=== PATIENT | female | born 1930 | race Caucasian/White ===

== ENCOUNTER 2017-03-02 17:34 | Inpatient (IN) ==
[2017-03-02 18:41] LABS: MANUAL DIFF NEEDED? NO
[2017-03-02 18:47] LABS: BASO% 0.3 % (0.0-0.8); HEMATOCRIT 31.9 % (37.0-47.0); HEMOGLOBIN 9.9 g/dL (12.0-16.0); IMM GRAN# 0.04 X1000 (0.0-0.04); IMM GRAN% 0.3 % (0.0-0.5); LYMPH# 2.37 X1000 (1.2-3.4); LYMPH% 19.9 % (20.5-51.1); MCV 83.7 FL (81-99); MONO# 0.99 X1000 (0.11-0.59); MONO% 8.3 % (1.7-9.3); MPV 8.4 FL (7.4-10.4); NEUT% 71.2 % (42.2-75.2); PLT 420 X1000 (130-400); RBC 3.81 XMIL (4.2-5.4)
--- NOTE | 2017-03-02 18:50 | EKG Report ---
Test Performed on : 03/02/2017 6:23:22 PM Test Reason : AMS Blood Pressure : / mmHG Vent. Rate : 097 BPM Atrial Rate : 097 BPM P-R Int : 150 ms QRS Dur : 078 ms QT Int : 340 ms P-R-T Axes : 083 -69 077 degrees QTc Int : 431 ms Sinus rhythm. with premature atrial complexes. Left axis deviation Abnormal ECG No previous ECGs available Unconfirmed Result
[2017-03-02 19:34] LABS: ALBUMIN 2.7 g/dL (3.5-5.0); CALCIUM 12.7 mg/dL (8.8-10.2); INR 0.97 (0.86-1.15); POTASSIUM 3.8 mmol/L (3.5-5.1); PROTIME 13.2 Seconds (12.1-15.5); TOTAL BILIRUBIN 0.4 mg/dL (0.20-1.00)
[2017-03-02 19:35] LABS: PTT PL 32.4 Seconds (22.6-43.9)
--- NOTE | 2017-03-02 19:57 | Diag Imaging Result Doc PS360 ---
CHEST-1 VIEW - 03/02/2017 INDICATION: AMS TECHNIQUE: COMPARISON: None FINDINGS: Aside from a calcified granuloma in the right midlung, the lungs are fairly clear. There is some mild biapical pleural scarring. Heart size is normal. Bony structures are diffusely abnormal with mixed lysis compatible with extensive metastatic disease or myeloma. IMPRESSION: Extensive skeletal abnormalities compatible with metastatic disease or multiple myeloma. Electronically signed by Robert Lofton 03/02/2017 7:55 PM
[2017-03-02 20:15] LABS: BILIRUBIN URINE NEGATIVE (NEGATIVE); BLOOD URINE TRACE (NEGATIVE); CLARITY SL. CLOUDY (CLEAR); COLOR YELLOW; GLUCOSE URINE NEGATIVE (NEGATIVE); LEUKOCYTES URINE NEGATIVE (NEGATIVE); NITRITE URINE NEGATIVE (NEGATIVE); PROTEIN URINE TRACE mg/dL (NEGATIVE); SP GRAVITY URINE 1.025; UR AMPHETAMINES QUAL NONE DETECTED (NONE DETECT); UR BARBITUATES QUAL NONE DETECTED (NONE DETECT); UR BENZODIAZEPIN QUAL NONE DETECTED (NONE DETECT); UR CANNABINOIDS QUAL NONE DETECTED (NONE DETECT); UR COCAINE QUAL NONE DETECTED (NONE DETECT); UR MDMA QUAL NONE DETECTED (NONE DETECT); UR METHADONE QUAL NONE DETECTED (NONE DETECT); UR METHAMPHETAMINE QUAL NONE DETECTED (NONE DETECT); UR OPIATES QUAL NONE DETECTED (NONE DETECT); UR OXYCODONE QUAL NONE DETECTED (NONE DETECT); UR PCP QUAL NONE DETECTED (NONE DETECT); UR TCA QUAL NONE DETECTED (NONE DETECT); UROBILINOGEN URINE NORMAL
[2017-03-02 20:22] LABS: URINE SOURCE CATH
[2017-03-02 20:23] LABS: URINE CULTURE PL NEEDED? YES; URINE EPITHELIAL CELLS <10 /HPF (<10); URINE RBC <10 /HPF (<10); URINE WBC <10 /HPF (<10)
[2017-03-02] MEDS ORDERED: NS 1,000 ML IV ONE ×2 (21:15→22:43)
[2017-03-02] MEDS ORDERED: ROCEPHIN 1 GM/NS 1 GM/50 ML IVPB IV ONE (22:42)
[2017-03-03 07:43] LABS: HEMOGLOBIN 9.6 g/dL (12.0-16.0); MPV 8.9 FL (7.4-10.4); RBC 3.69 XMIL (4.2-5.4)
--- NOTE | 2017-03-03 07:56 | Diag Imaging Result Doc PS360 ---
EXAM: HEAD W/O CONTRAST - 03/02/2017 HISTORY: AMS TECHNIQUE: Dose reduction protocol COMPARISON: None. FINDINGS: There are multiple destructive lesions in the skull. These may relate to metastatic disease or multiple myeloma. There is slight thickening of the underlying meningeal margin associated with some of the destructive skull lesions on the left. There is no other evidence of intracranial hemorrhage, mass effect, or midline shift. There are bilateral basal ganglia calcifications compatible with chronic process. There is no infarct identified, although acute infarcts may not be immediately visible. 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 Slight meningeal thickening associated with some of the skull lesions on the left. The brain itself otherwise shows no acute process. There is no hemorrhage or mass effect. The gas pumping station helper radiologist provided preliminary results at 9:41 PM on 03/02/2017. Electronically signed by Jorge Lane 03/03/2017 7:53 AM
[2017-03-03 08:02] LABS: ALBUMIN 2.5 g/dL (3.5-5.0); CALCIUM 12.4 mg/dL (8.8-10.2); MAGNESIUM 2.3 mg/dL (1.5-2.7); POTASSIUM 3.3 mmol/L (3.5-5.1); TOTAL BILIRUBIN 0.4 mg/dL (0.20-1.00); TOTAL PROTEIN 6.5 g/dL (6.3-8.3)
[2017-03-03] MEDS ORDERED: ZOFRAN IV PRN (10:32)
[2017-03-03] MEDS ORDERED: TYLENOL PO PRN (10:32)
[2017-03-03] MEDS ORDERED: PROTONIX IV SCH (10:45)
[2017-03-03] MEDS ORDERED: SODIUM CHLORIDE 0.9% INJ SCH (10:45)
[2017-03-03] MEDS: NS 1,000 ML IV SCH (11:12)
[2017-03-03] MEDS ORDERED: ZOMETA 4 MG in NS 100 ML IV ONE (13:00)
[2017-03-03] MEDS ORDERED: CALMOSEPTINE OINTMENT TOP PRN (15:23)
[2017-03-03] MEDS ORDERED: BLISTEX MEDICATED BERRY LIP BALM TOP PRN (15:33)
--- NOTE | 2017-03-03 16:30 | HISTORY AND PHYSICAL ---
CHIEF COMPLAINT: Weakness and back pain. HISTORY OF PRESENT ILLNESS: This is an 86-year-old female with no prior history who presented to the emergency room at the advice of [facility]. According to the patient and the son whom she lives with, the patient has not been to a doctor in probably 25 years. She has had no real problems other than over the last year she has had back pain. This has increased over the last 4- 5 months, and then over the last 2 months she has had a decrease in appetite, taking very little in over the last week. Two days ago, she did see Dr. Cordoba to establish care. Because of anorexia and generalized weakness, [facility] was set up and when they went out for their initial visit they advised the patient be brought to the emergency room. In the emergency room, she was found to have a white count of 11.9, a creatinine of 1.5, and a calcium of 12.7 with alkaline phosphatase of 415. CAT scan of the head was performed, which revealed extensive destructive metastatic disease versus multiple myeloma in the skull, slight meningeal thickening associated with some of the skull lesions on the left. Chest x-ray revealed extensive skeletal abnormalities compatible with metastatic disease or multiple myeloma. She was given a liter of fluid, Rocephin, and admitted for further evaluation and treatment. PAST MEDICAL HISTORY: Macular degeneration. She is legally blind. PAST SURGICAL HISTORY: Denies. SOCIAL HISTORY: Denies alcohol, tobacco, or illicit drug use. She lives with her son. ALLERGIES: No known drug allergies. HOME MEDICATIONS: None. REVIEW OF SYSTEMS: A 14-point review of systems is discussed with the patient and son, with pertinent positives being increasing back pain, generalized weakness, and anorexia. She denied chest pain, palpitations, dizziness, syncope, nausea, vomiting, diarrhea, constipation, black or bloody vomitus, black or bloody stools, any hematuria, dysuria, frequency, or urgency. PHYSICAL EXAMINATION: GENERAL: This is an 86-year-old female who is lying in the bed in no distress. VITAL SIGNS: Blood pressure is 175/64 with a heart rate of 89. Respirations are 18. Temperature is 98.1 degrees oral with room air saturations of 96% to 98%. CARDIOVASCULAR: Regular rate and rhythm. S1 and S2 are appreciated. PULMONARY: Breath sounds are clear, with no increased work of breathing noted. GASTROINTESTINAL: Abdomen was soft, nontender, and nondistended, with bowel sounds in all 4 quadrants. BACK: No CVAT. She does have some spine tenderness. EXTREMITIES: No clubbing, cyanosis, or edema. Calves are nontender. Pulses are palpable x4. SKIN: Warm and dry, with a scar to the area of the left breast from an injury as a child. DIAGNOSTICS: WBC is 11.9 with hemoglobin 9.9, hematocrit 31.9 and platelets 422 ,000. Sodium is 138, potassium 3.8, BUN 64, creatinine 1.5 with a glucose of 165. Calcium is 12.7 with AST 69, ALT 19, alkaline phosphatase 415. Her total protein is 7. Urine drug screen is negative. Urinalysis is essentially negative, although urine culture is pending with Gram- negative rods so far. ASSESSMENT AND PLAN: 1. Metastatic disease with lytic lesions noted. Primary source is unknown. I did talk to Dr. Valle in Oncology and discussed the laboratories with him. 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 Further Treatment according to pt and family decision. 2. Hypercalcemia. This is most likely due to the bone destruction from the lytic lesions. We will give Zometa. 3. Dehydration. We will continue with IV hydration. 4. Anorexia and failure to thrive. We will encourage the patient to increase her p.o. intake. 5. Leukocytosis. This is very likely from a urine source, as she is growing Gram-negative rods. We will continue with the current antibiotics and, once culture and sensitivities return, we can dose antibiotics as appropriate to results. 6. Code status and disposition. I did discuss the patient's CT and chest x-ray results with the son and daughter. We discussed further workup as well as treatments. They stated that they did not feel that the patient was strong enough to go through any type of treatments, and they were even concerned about a workup. At present, they feel that hospice care at home would be best for the patient. We are arranging a meeting with the family and hospice , hopefully today, and we will follow their wishes. I did discuss code status. The 2 siblings that are here state that the patient would not want to have any heroic measures performed, although they were going to talk to their 3rd sibling before a final decision was made and at that time they will talk to the patient. Further treatments pending hospital course. Addendum, I again met with the patient, son and 2 daughters. They wish pt to be a DNR1. Dictated by LESA Cardona for Justin Meza MD cc: LESA Cardona MD Jeb S. Hornsby, MD [facility]
[2017-03-04] MEDS: NS 1,000 ML IV SCH ×2 (02:06→04:40)
[2017-03-04] MEDS ORDERED: OFIRMEV 1000 MG/ISOTONIC SOLN 1,000 MG/100 ML BOTTLE IV PRN (08:50)
[2017-03-04 09:19] VITALS: BP 156/65
[2017-03-04] MEDS ORDERED: ROXANOL CONC. LIQUID PO PRN (10:14)
[2017-03-04] MEDS ORDERED: ATIVAN PO PRN (10:14)
[2017-03-04] MEDS ORDERED: ATROPINE 1% OPHTH SOLN SL PRN (10:15)
[2017-03-04] MEDS ORDERED: ATIVAN IV ONE (11:18)
--- NOTE | 2017-03-04 12:52 | PROGRESS NOTE ---
DATE: 03/04/2017 SUBJECTIVE: The patient unfortunately has made a turn for the worse. She is nonverbal. PHYSICAL: Temperature 99, pulse 130-150, BP 227/84 early this a.m.; currently 110 systolic. Saturation 82% on 10 L venturi mask. General: The patient is in no respiratory distress. She appears comfortable but is nonverbal; does not arouse or respond to commands. HEENT: Normocephalic, atraumatic. Neck supple. CV: Tachycardia. Chest: Greatly diminished breath sounds bilaterally. Abdomen soft. Extremities: The patient will respond to noxious stimuli. Neurologic: Patient is lying in bed. Eyes closed. She does not respond to verbal stimuli. ASSESSMENT: 1. Metastatic disease with lytic lesions. 2. Hypercalcemia. Patient has been given Zometa. 3. Volume depletion. She is on IV fluids. 4. Anorexia. 5. Adult failure to thrive. 6. Leukocytosis. PLAN: Will discuss with the family further treatment. She does have a urinary tract infection with Escherichia coli. She has been given 1 dose of Rocephin already. We will discuss with the family if they desire to continue on antibiotics as well as IV fluids or change Ms. Tenorio to comfort care. cc: Justin Meza MD
--- NOTE | 2017-03-05 04:24 | DISCHARGE SUMMARY ---
ADMISSION DATE: 03/02/2017 DISCHARGE DATE: 03/04/2017 DIAGNOSES: 1. Metastatic disease with lytic lesions noted, unknown primary. 2. Hypercalcemia, most likely secondary to bone destruction from the lytic lesions. 3. Dehydration. 4. Anorexia with failure to thrive. 5. Leukocytosis, probable urinary tract infection. DIAGNOSTICS: CT of the head revealed extensive destructive metastatic disease versus multiple myeloma in the skull with slight meningeal thickening associated with some of the skull lesions on the left. Chest x-ray revealed skeletal abnormalities compatible with metastatic disease or multiple myeloma. HOSPITAL COURSE: Ms. Tenorio was brought into the hospital by her son after having generalized weakness and back pain. He states that she had been sick for about 2 weeks and refused to be seen and evaluated. Looking back, he realized that over probably the 4 months, she started having a decrease in appetite and generalized weakness, although she never complained. She was found to have lytic lesions in her skull and spine per CT and chest x-ray, with a calcium of 12.7. Zometa was given. She was hydrated. She did receive Rocephin for a suspected urinary tract infection. I did discuss with the son and 2 daughters the patient's status, her poor prognosis. It was their wish as well as the patient's wish that the patient be a DNR level 1 and hospice be called as they had dealt with hospice in the past with another family member. They did state that their concerns were that the patient have comfort and dignity. Hospice [facility] did come meet with the family. She did receive IV hydration as well as supplemental oxygen with pain medicines and nausea medicines, although she never required any. This morning, the patient's status continued to decline. The family wished for her to have comfort measures only as they do not want to do anything to prolong her suffering. They were concerned that she may be in pain and unable to tell us. Her IV was discontinued. She was placed on 2 L nasal cannula. Given Roxanol, Ativan sublingual. Ultimately, she continued to decline and at 11:42 a.m., she ceased breathing, had no blood pressure and no pulse. Therefore, she was pronounced with 2 daughters and son at the bedside. Dictated by LESA Cardona for Justin Meza MD cc: Renate LESA Gregory MD [facility]
--- NOTE | 2017-03-06 04:25 | PROGRESS NOTE ---
DATE: 03/04/2017 ADDENDUM: SUBJECTIVE: Patient is noted to have an Escherichia coli urinary tract infection. We will discuss with the family the code status. They do desire her to be DNR. They have contacted hospice. We discussed with them comfort care measures. Will not start antibiotics at this point. We will stop her IV fluids and continue to keep her comfortable. TIME SPENT: Twenty minutes was spent in discussion. cc: Justin Meza MD
--- NOTE | 2017-03-18 05:20 | ED EKG INTERP ---
This chart was entered by Nohemy Case Scribe, acting as scribe for Josafat Munroe DO. EKG Interpretation - EKG Time of EKG reading by physician:: 18:23 EKG Read and Signed by:: Josafat Munroe EKG Interpretation (*Must complete 3 of following elements*): Abnormal Rate: 97 Rhythm: Sinus rhythm with premature atrial complexes [place]: left Comments: Abnormal ECG This chart was documented by the indicated scribe, (Nohemy Case Scribe) and accurately reflects the services I performed and decisions made by , Josafat Munroe DO, as attested by the provider's signature.
--- NOTE | 2017-03-18 05:20 | PROVIDER DOCUMENTATION ---
This chart was entered by Nohemy Case Scribe, acting as scribe for Josafat Munroe DO. HPI-General Adult - General Chief Complaint: Weakness Stated Complaint: weakness Time Seen by Provider: 03/02/17 18:55 Source: patient Allergies/Adverse Reactions: Patient Allergies Allergy/AdvReac Type Severity Reaction Status Date / Time No Known Allergies Allergy Verified 03/02/17 21:26 Home Medications: Home Medication List Medication Instructions Recorded Confirmed Last Taken Type Lubiprostone [Amitiza] 24 microgm PO BID 03/03/17 03/03/17 03/02/17 09:00 History Ranitidine [Zantac] 150 mg PO BID 03/03/17 03/03/17 03/02/17 09:00 History - History of Present Illness -Gen Adult Nature of Presenting Problems: 86 Y/O F presents to ED with weakness. According to Pt family pt is worsening in health over the past month. Pt hasn't been eating, losing weight, not drinking. In the past 3x days hasn't been able to situp and c/o of chest pain and cough. Family states dehydration, and malnourished. Location of Pain/Injury: reports: generalized Pain Radiation: reports: no radiation Quality of Pain: reports: aching Severity: reports: severe Onset/Duration: reports: other (1 month) Timing: reports: still present, changing over time, getting worse Associated Symptoms: reports: chest pain, cough, loss of appetite, weakness, trouble walking Similar Symptoms Previously?: Yes Recently seen or treated by another doctor?: Yes Review of Systems - Adult - REVIEW OF SYSTEMS - ADULT Constitutional: reports: weight loss. denies: chills, fever Cardiovascular: reports: chest pain Respiratory: reports: cough. denies: shortness of breath Gastrointestinal: reports: poor appetite. denies: abdominal pain, diarrhea, nausea, vomiting Neurological: denies: dizziness/vertigo, headache/migraines Past History - Adult - PAST MEDICAL HISTORY-ADULT Review of Records: reports: Old Records Reviewed, Nursing Assessment Review, Medications Reviewed, Social history reviewed & non-contributory. - SOCIAL HISTORY Smoking: non-smoker Substance Use: none/never Alcohol Use Frequency: never Living Situation: family Physical Exam-General - CONSTITUTIONAL General Appearance: alert, mild distress, thin. negative: appears well - EYES Eyes: PERRL/EOMI - HEAD, EARS, NOSE, MOUTH & THROAT HENMT: TMs normal, other (thrush noted). negative: moist mucous membranes - NECK Neck: non-tender - RESPIRATORY Respiratory: chest non-tender, lungs clear, normal breath sounds - CARDIOVASCULAR Cardiovascular: normal peripheral pulses - GASTROINTESTINAL (ABDOMEN) Abdominal Exam: non tender, soft - MUSCULOSKELETAL Extremity: negative: normal range of motion - SKIN Integumentary: normal color - PSYCHIATRIC Psych/Mental Status: normal thought content, normal thought process, oriented x 3 Progress - PLAN OF CARE/RESULTS Progress/Plan/Lab Results: Vital Signs - 8 hr 03/02/17 17:34 Temperature 97.2 F L Pulse Rate 100 H Respiratory Rate 18 Blood Pressure 171/69 O2 Sat by Pulse Oximetry 100 Laboratory Results - last 24 hr 03/02/17 03/02/17 03/02/17 18:33 18:33 18:33 WBC 11.92 H RBC 3.81 L Hgb 9.9 L Hct 31.9 L MCV 83.7 MCH 26.0 L MCHC 31.0 L RDW Std Deviation 16.4 H Plt Count 420 H MPV 8.4 Immature Gran % (Auto) 0.3 Neut % (Auto) 71.2 Lymph % (Auto) 19.9 L Sac % (Auto) 8.3 Eos % (Auto) 0.0 Baso % (Auto) 0.3 Immature Gran # (Auto) 0.04 Neut # (Auto) 8.49 H Lymph # (Auto) 2.37 Sac # (Auto) 0.99 H Eos # (Auto) 0.00 Baso # (Auto) 0.03 PT INR APTT (Factor Assay) Sodium 138 Potassium 3.8 Chloride 97 L Carbon Dioxide 26 Anion Gap 15 BUN 64 H Creatinine 1.5 H Estimated GFR/1.73 m2 33 BUN/Creatinine Ratio 43 Glucose 165 H Calculated Osmolality 298 Calcium 12.7 H* Total Bilirubin 0.40 AST 69 H ALT 19 Alkaline Phosphatase 415 H Creatine Kinase 26 Troponin T < 0.010 Total Protein 7.0 Albumin 2.7 L Globulin 4.0 Albumin/Globulin Ratio 1.0 03/02/17 18:33 WBC RBC Hgb Hct MCV MCH MCHC RDW Std Deviation Plt Count MPV Immature Gran % (Auto) Neut % (Auto) Lymph % (Auto) Sac % (Auto) Eos % (Auto) Baso % (Auto) Immature Gran # (Auto) Neut # (Auto) Lymph # (Auto) Sac # (Auto) Eos # (Auto) Baso # (Auto) PT 13.2 INR 0.97 APTT (Factor Assay) 32.4 Sodium Potassium Chloride Carbon Dioxide Anion Gap BUN Creatinine Estimated GFR/1.73 m2 BUN/Creatinine Ratio Glucose Calculated Osmolality Calcium Total Bilirubin AST ALT Alkaline Phosphatase Creatine Kinase Troponin T Total Protein Albumin Globulin Albumin/Globulin Ratio Orders Category Date Time Status Saline Loc NOW Care 03/02/17 18:05 Active CHEST-1 VIEW [RAD] Stat Exams 03/02/17 18:05 Completed HEAD W/O CONTRAST [CT] Stat Exams 03/02/17 18:05 Taken CBC WITH ELECTRONIC DIFF [HEME] Stat Lab 03/02/17 18:33 Completed CK PROFILE [SP CHEM] Stat Lab 03/02/17 18:33 Completed COMPREHENSIVE METABOLIC PANEL [CHEM] Stat Lab 03/02/17 18:[address] Com[address]IME WITH INR [address] [COAG] Stat Lab 03/02/17 18:[address] [COAG] Stat Lab 03/02/17 18:33 Completed TROPONIN T Stat Lab 03/02/17 18:[address] W/POSS RFLX CULT [URINALYSIS] Stat Lab 03/02/17 19:55 Received URINE DRUG SCREEN PL Stat Lab 03/02/17 19:55 Received EKG [EKG] Stat Ther 03/02/17 18:05 Draft Result Diagrams: 03/03/17 07:20 03/03/17 07:20 - XRAY 1 XRAY Study: Chest Impression: Abnormal (Extensive skeletal abnormalities compatible w/ metastatic disease or multiple myeloma) XRAY Interpretation: See Notes - CONSULTS/PCP/HOSPITALIST Notification #1 *Consult/PCP/Hospitalist*: Dr. Rios Time Discussed: 22:42 Reason/Comments: Admit Consult Disposition: Admit (Admit Accepted) Departure - Departure Time of Disposition Decision: 22:23 DIAGNOSIS: Dehydration, Weakness Disposition: ADMITTED INPATIENT 09 Certified Medical Emergency: Emergent Condition: - Critical Care Note This patient required my direct & personal management of CC.: No This chart was documented by the indicated scribe, (Nohemy Case Scribe) and accurately reflects the services I performed and decisions made by me, Josafat Munroe DO, as attested by the provider's signature.
== END 2017-03-04 11:42 | disposition expired ==
LOC: P.ED 17:34 → P.MEDSURG 23:03 → SUATTDRO 23:03
PROVIDERS: ATTEND Family Medicine